=== PATIENT | female | born 1970 | race Caucasian/White ===

== ENCOUNTER 2018-04-01 05:56 | Day surgery (SDC) | payer SELFPAY ==
[2018-03-28 16:04] LABS: Hematocrit 35.3 % (37-47); Hemoglobin 11.4 g/dl (12.0-15.0); Mean Corp Hgb Conc 32.3 g/gl (32-36); Mean Corpuscular Hgb 26.1 pg (27.0-32.0); Mean Platelet Vol. 8.5 fl (6.2-12.0); Platelet Count 371 K/mm3 (150-450); RBC Distribution Width CV 15.5 % (11.6-14.6); RBC Distribution Width SD 44.7 fl (35.1-43.9); Red Blood Count 4.36 M/mm3 (4.2-5.4); White Blood Count 9.7 K/mm3 (4.4-11.0)
[2018-03-28 16:12] LABS: Scan Indicated on CBC? Y/N NO
[2018-03-28 16:30] LABS: Prothrombin Time (Protime)PT. 13.2 SECONDS (11.7-14.9)
[2018-03-28 16:31] LABS: Partial Thromboplast Time 28.3 Seconds (24.1-36.2)
[2018-03-28 16:56] LABS: Creatinine, Serum 0.57 mg/dL (0.55-1.02); EST Glomerular Filtration Rate 122 mL/min (>60); Est Glom Filt Rate - Afr Amer 148 mL/min (>60)
[2018-03-28 17:04] LABS: Pregnancy, Serum, hCG Quali. NEGATIVE Negative (0-9 Nonpreg)
--- NOTE | 2018-03-31 17:45 | HP.PCM_ITS ---
History and Physical Date of Admission: 04/01/18 Surgical History and Physical Date: 03/31/2018 Name: GERALD GOEL Age: 48 Date of : 1970 Gerald Goel, a 48 year old female 10 0 0 0 10, presents for Vaginal Hysterectomy and AP Repair and possible SSF on 04/01/18 at 7 :30. 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 PT states it has been present atleast 4 years. Does admit to some mild pain with sitting. Occasional incontinence. LMP 03-21-2018 . Denies any other problems or concerns at this time; prolapse which began 3-4 years ago. Gerald claims it started gradually It occurs all the time. It is located in the vagina. Severity is severe; Associated signs and symptoms are low back pain. MEDICATIONS HISTORY: ALLERGIES: Penicillins, Hives and/or rash Infections - none Illnesses - none Accidents - None Hospitalizations - see surgery Review of Systems: GENERAL - Denies fever, or chills SKIN - Denies skin changes EYES - Denies visual changes EARS - Denies difficulty hearing NOSE - Denies nasal congestion or bleeding MOUTH - Denies sore throat or difficulty swallowing NECK - Denies pain or swelling RESPIRATORY - Denies shortness of breath or wheezing CARDIOVASCULAR - Denies palpitations or chest pain GASTROINTESTINAL - Denies nausea, vomiting, diarrhea, constipation GENITOURINARY - prolapse MUSCULOSKELETAL - Denies joint or muscle pain NEUROLOGICAL - Denies localized numbness or weakness PSYCHIATRIC - Denies depression or anxiety ENDOCRINE - Denies heat or cold intolerance, weight loss or gain HEMATO-IMMUNOLOGIC - Denies excesive bleeding with cuts SOCIAL HISTORY: Alcohol Use - denies drinking Smoking - denies smoking Illicit Drug Use - denies use of street drugs Spouse-Sig Other Name - Richard FAMILY HISTORY: nv MENSTRUAL HISTORY: nv PAST PREGNANCIES: Total Pregnancies - 10; Full Term Pregnancies - 10; Premature - 0; Abortions, Induced - 0; Abortions, Spontaneous - 0; Ectopics - 0; Multiple Births - 0; Living Children - 10 SURGICAL HISTORY: 1. 09/17/2011 hernia repair PHYSICAL EXAM BP- 124/64 Weight- 61.35527 lbs CONSTITUTIONAL - NAD, well nourished, and well developed SKIN - No rash, lesions, or ulcers HEENT - Normocephalic, PERRLA, EOMI NECK - No nodes, no nuchal rigidity and thyroid normal size and texture LYMPH NODES - Palpation of lymph nodes in neck and groins within normal limits LUNGS - CTA x2 without wheezes, crackles or rales CARDIAC - Regular rate and rhythm without rubs, murmurs, or gallops ABDOMEN - Without hepatosplenomegaly, distention, masses, rebound, or guarding; normal bowel sounds; no hernias EXTREMITIES - No edema or calf tenderness NEUROLOGICAL - Cranial nerves II-XII grossly intact PSYCHIATRIC - A and O to time, place, person, mood and affect External Genitial Vagina - non-tender without lesions Urethra/Urethral Meatus - non-tender Bladder - non-tender Vagina - vaginal meyer are pink and moist without loss of rugae and no evidence of atropy Cervix - without cervical motion tenderness and has normal size and features without evident lesions Uterus - multiparous size 6 cm & wt 75-125 g and total prolapse of uterus and vagina with edema of vagina Adnexa - clear without massess or tenderness ASSESSMENT/PLAN: 1. Uterovaginal Prolapse, Complete Discussed options for treatment and pt and desire we proceed with Vag Hyst, AP Repair, possible SSF. Discussed RBAs and all questions answered. Fitted with 3.75 inch Gelhorn pessary until surgery to help reduce edema.
[2018-04-01] VITALS (14 sets, daily range): BP systolic 96–117; BP diastolic 56–74; PULSE 55–87; RESP 14–16; TEMP 36.1–36.9; O2SAT 93–100; BMI 28.5
--- NOTE | 2018-04-01 | HYST_PTH ---
PATIENT: GERALD MARRUFO LOC: [facility] [place] U#:[id number] AGE/SX: 48/F ROOM: RE04/01/[address]: Dr. Andrews Castillo MD : 1970 BED: DIS: 04/02/2018 SPEC #: [id number] RECD: 04/01/18 12:35 STATUS: REDD DIEGO #: [id number] TAL: 04/01/18 00:[address]: Andrews Castillo DEPT: SURGICAL PATHOLOGY RECD BY: Birtton Slater ENTERED: 04/01/18 12:35 SP TYPE: HYSTERECT OTHR DR: Dr. Antwon Thomas, DO Tissues: Uterus, NOS Procedures: Surgery Specimen Level V HEADER OPERATION: Hysterectomy, vaginal, A & P PRE-OP DIAGNOSIS: Complete uterovaginal prolapse TISSUE SUBMITTED: Uterus, cervix, vaginal mucosa MICROSCOPIC DIAGNOSIS Uterus, cervix and vaginal mucosa, vaginal hysterectomy and A & P repair: Cervix ? chronic cystic cervicitis. Endometrium ? proliferative endometrium. Myometrium ? intramural leiomyoma (3 cm in greatest dimension). - Focal adenomyosis. Vaginal mucosal tissue ? fragments of squamous mucosa with minimal chronic inflammation. SJ:dania 04/02/18 MICROSCOPIC DESCRIPTION Slides are reviewed. GROSS DESCRIPTION Received in fixative is one container labeled with the patient's name and designated uterus, cervix, vaginal mucosa. The specimen consists of a hysterectomy specimen consisting of uterus with cervix and detached pieces of mucosal tissue. The uterus with cervix weighs 344 gm and measures 15 x 7 x 6 cm. The serosal surface is gilmore, glistening. The ectocervix is markedly enlarged and measures 6 x 7 cm. The ectocervical mucosa is unremarkable. The external os is oval in contour. The endocervical canal measures 5 cm in length and the endocervical mucosa is gilmore, glistening and without any mass lesion and measures up to 0.5 cm in thickness. Sections of the uterine wall reveal a gilmore nodular mass measuring 3 cm in greatest dimension. Sections of this mass reveals gilmore whorled cut surfaces without areas of hemorrhage, necrosis or cystic degeneration. The uninvolved uterine wall measures up to 3 cm in thickness. Also received are five variable sized pieces of gilmore mucosal tissue measuring in aggregate 9 x 6 x 1.5 cm. No mucosal lesion is identified. A few instrumentation hogue are noted. Clinical Field Specialist sections are submitted in nine cassettes as follows: 1 - anterior cervix, 2 - posterior cervix, 3 & 4 - anterior uterine wall, 5 & 6 - posterior uterine wall, 7 & 8 ? nodular mass, 9 ? mucosal tissue. / ANUEL:dania 04/01/18 More sections are submitted as follows: 10 anterior cervix, 11 ?posterior cervix. / ANUEL:dania 04/02/18 TC:1 CPT: 52691
[2018-04-01 06:23] LABS: Internal QC Validated? YES +Cl - CLEAR BKGD; Pregnancy, Urine Negative Negative
--- NOTE | 2018-04-01 07:28 | PCM.OP.BLANK ---
Operative Report Date of Procedure: 04/01/18 Surgeon: Andrews Castillo MD, FACOG Manager Medicaid: TASHA Jolly Anesthesia: Robyn Peter CRNA Type of anesthesia: General endotracheal Procedure: Vaginal hysterectomy and AP repair Findings: 10-12 cm uterus with normal-appearing fallopian tubes and ovaries. Total uterovaginal prolapse. Indications: This is a 48-year-old 10 para 10 who is been having problems with total uterovaginal prolapse for about 4 years.. Conservative measures have not been helpful. Given this the patient desires that we proceed the above procedure. She has been counseled regarding the risk and indications of this procedure including the possibility of bleeding, infection, and injury to surrounding structures such as bowel bladder. All questions were answered. Procedure: Patient was taken to the operating room where after induction of general anesthesia she was placed in the dorsal lithotomy position and prepped and draped in the usual sterile fashion. The large Gelhorn pessary was removed. Bladder was drained with a red rubber catheter. Anterior large and edematous cervix was grasped with a tenaculum and anterior cervix circumscribed with cautery on a setting of 35 W coagulation. Anterior vaginal mucosa was undermined and anterior peritoneum was not entered. The posterior aspect of the cervix was circumscribed with a knife and posterior peritoneum easily entered. Progressive bites were taken on either side of the uterine cervix and each pedicle ligated with 0 Vicryl suture. After 4 or 5 suture pedicles were placed we were able to enter anteriorly. Superior pedicles were ligated ?2 with 0 Vicryl suture and sidewall pedicles were examined and oversewn where necessary with [id number] 0 Vicryl suture to achieve hemostasis. Posterior vaginal cuff was oversewn with running locked 0 Vicryl suture. Hemostasis was noted and peritoneum was closed in a pursestring fashion incorporating superior pedicles into the stitch. Hemostasis was noted. Attention was turned toward the anterior repair portion of the procedure. Anterior vaginal mucosa was undermined and divided and then imbricated toward the midline with interrupted 0 Vicryl sutures. Bernabe catheter was placed. Vaginal mucosa was trimmed and then closed with interrupted 2-0 chromic suture. Vaginal cuff was then closed front to back with interrupted [id number] 0 Vicryl suture. Hemostasis was noted. Attention was turned toward the posterior repair portion of the procedure. Remnants of the hymenal ring were grasped with Allises and a V-shaped incision was made in the perineum. Rectovaginal mucosa was then undermined divided and then imbricated toward the midline with interrupted 0 Vicryl suture. Vaginal mucosa was trimmed and then closed with running locked 2-0 chromic suture. Remnants of the bulbocavernosus muscles were identified and brought toward the midline with a single [id number] 0 Vicryl suture and perineum was closed in the usual fashion with running and subcuticular, and [id number] 2-0 chromic suture. Hemostasis was noted. Bernabe catheter was again opened and clear yellow urine was noted. Vagina was packed with iodoform tape. Patient tolerated the procedure well was taken to recovery room in satisfactory condition; sponge instrument and needle counts were all reportedly correct. Estimated blood loss for the case was 350 cc. Cefotan 2 g IV was given prior to beginning the operative procedure. There were no apparent complications of the surgery. Specimen to pathology was uterus and vaginal mucosa.
--- NOTE | 2018-04-01 07:31 | OP.PCM_ITS ---
Operative Report Date of Procedure: 04/01/18 Surgeon: Andrews Castillo MD, FACOG Division Human Resources Manager: TASHA Jolly Anesthesia: Robyn Peter CRNA Type of anesthesia: General endotracheal Procedure: Vaginal hysterectomy and AP repair Findings: 10-12 cm uterus with normal-appearing fallopian tubes and ovaries. Total uterovaginal prolapse. Indications: This is a 48-year-old 10 para 10 who is been having problems with total uterovaginal prolapse for about 4 years.. Conservative measures have not been helpful. Given this the patient desires that we proceed the above procedure. She has been counseled regarding the risk and indications of this procedure including the possibility of bleeding, infection, and injury to surrounding structures such as bowel bladder. All questions were answered. Procedure: Patient was taken to the operating room where after induction of general anesthesia she was placed in the dorsal lithotomy position and prepped and draped in the usual sterile fashion. The large Gelhorn pessary was removed. Bladder was drained with a red rubber catheter. Anterior large and edematous cervix was grasped with a tenaculum and anterior cervix circumscribed with cautery on a setting of 35 W coagulation. Anterior vaginal mucosa was undermined and anterior peritoneum was not entered. The posterior aspect of the cervix was circumscribed with a knife and posterior peritoneum easily entered. Progressive bites were taken on either side of the uterine cervix and each pedicle ligated with 0 Vicryl suture. After 4 or 5 suture pedicles were placed we were able to enter anteriorly. Superior pedicles were ligated ?2 with 0 Vicryl suture and sidewall pedicles were examined and oversewn where necessary with [id number] 0 Vicryl suture to achieve hemostasis. Posterior vaginal cuff was oversewn with running locked 0 Vicryl suture. Hemostasis was noted and peritoneum was closed in a pursestring fashion incorporating superior pedicles into the stitch. Hemostasis was noted. Attention was turned toward the anterior repair portion of the procedure. Anterior vaginal mucosa was undermined and divided and then imbricated toward the midline with interrupted 0 Vicryl sutures. Bernabe catheter was placed. Vaginal mucosa was trimmed and then closed with interrupted 2-0 chromic suture. Vaginal cuff was then closed front to back with interrupted [id number] 0 Vicryl suture. Hemostasis was noted. Attention was turned toward the posterior repair portion of the procedure. Remnants of the hymenal ring were grasped with Allises and a V-shaped incision was made in the perineum. Rectovaginal mucosa was then undermined divided and then imbricated toward the midline with interrupted 0 Vicryl suture. Vaginal mucosa was trimmed and then closed with running locked 2-0 chromic suture. Remnants of the bulbocavernosus muscles were identified and brought toward the midline with a single [id number] 0 Vicryl suture and perineum was closed in the usual fashion with running and subcuticular, and [id number] 2-0 chromic suture. Hemostasis was noted. Bernabe catheter was again opened and clear yellow urine was noted. Vagina was packed with iodoform tape. Patient tolerated the procedure well was taken to recovery room in satisfactory condition; sponge instrument and needle counts were all reportedly correct. Estimated blood loss for the case was 350 cc. Cefotan 2 g IV was given prior to beginning the operative procedure. There were no apparent complications of the surgery. Specimen to pathology was uterus and vaginal mucosa.
--- NOTE | 2018-04-01 07:32 | DCINST_ITS ---
Discharge Diet: No Restrictions Discharge Activity: Return to Normal Activity, May Not Drive - while taking narcotic pain medications., May Shower, May Take a Tub Bath May resume sexual activity in: 6-8 weeks Call your doctor if your incision/area has: Continuous Slow Oozing, Sudden Increased Bleeding, Increased Pain/ Swelling, Increased Redness, Foul Smelling Discharge Call your doctor if you observe: Fever of 101 or Higher, Inability to urinate, Inability to have a bowel movement, Using more than one pad per hour Allergies/Adverse Reactions: Allergies Penicillins [PCN] Allergy (Verified 03/29/18 16:11) Hives Medications to take at Discharge Calcium Carbonate [Calcium] 2 tab PO DAILY 03/29/18 Multivitamins,Therapeutic [Multivitamin] 1 tablet PO DAILY 03/29/18 Docusate Sodium [Colace] 100 mg PO BID PRN PRN #60 cap 04/01/18 Oxycodone [Oxyir] 5 mg PO Q6H PRN PRN 7 Days #10 tab 04/01/18 The following prescriptions were given: Oxycodone [Oxyir] 5 mg PO Q6H PRN PRN 7 Days #10 tab PRN Reason: Mod-Severe Pain (4-10/) Docusate Sodium [Colace] 100 mg PO BID PRN PRN #60 cap PRN Reason: Constipation Primary Care Physician: Antwon Thomas DO [Primary Care Provider] - Test Results: Test results from this visit will be discussed in further detail at your follow- up appointment, if applicable. Please Follow Up With: Andrews Castillo MD When: 2-3 weeks
[2018-04-01] MEDS: Acetaminophen 500 MG Tablet 1000 MG PO ×2 (14:09→23:03)
--- NOTE | 2018-04-01 14:11 | MDS.RN ---
Spouse at bedside.
[2018-04-01] MEDS: 0.9% NaCl Peripheral Flush Adult/Peds IV (15:38)
[2018-04-01] MEDS: Ketorolac 30 MG/ML Syringe IV ×2 (15:38→23:03)
[2018-04-01] MEDS: Enoxaparin 30 MG/0.3 ML Syringe SC (17:55)
[2018-04-01] MEDS: Lactated Ringers 1,000 ML 125 ML IV (17:55)
[2018-04-02 00:12] VITALS: BP 130/74; PULSE 63; RESP 15; TEMP 36.9; O2SAT 99
[2018-04-02 05:00] VITALS: BP 112/72; PULSE 67; RESP 16; TEMP 36.8; O2SAT 97
[2018-04-02] MEDS: Ketorolac 30 MG/ML Syringe IV (05:37)
[2018-04-02] MEDS: Acetaminophen 500 MG Tablet 1000 MG PO (05:37)
[2018-04-02 06:45] LABS: Hematocrit 28.2 % (37-47); Mean Corp Hgb Conc 31.9 g/gl (32-36); Mean Corpuscular Hgb 25.6 pg (27.0-32.0); Mean Corpuscular Volume 80.3 fL (81-99); Mean Platelet Vol. 8.4 fl (6.2-12.0); Platelet Count 258 K/mm3 (150-450); RBC Distribution Width CV 15.9 % (11.6-14.6); RBC Distribution Width SD 46.6 fl (35.1-43.9); Red Blood Count 3.51 M/mm3 (4.2-5.4); White Blood Count 11.5 K/mm3 (4.4-11.0)
[2018-04-02 06:49] LABS: Scan Indicated on CBC? Y/N NO
[2018-04-02 07:03] LABS: Creatinine, Serum 0.58 mg/dL (0.55-1.02); EST Glomerular Filtration Rate 119 mL/min (>60); Est Glom Filt Rate - Afr Amer 144 mL/min (>60); Estimated Creatinine Clearance 95.86 ml/min
--- NOTE | 2018-04-02 07:11 | PCM.PN.OB ---
Subjective: Patient without complaints. Tolerating diet well. Positive flatus. Minimal vaginal bleeding. - Physical Exam Vital Signs Temp Pulse Resp BP Pulse Ox 98.2 F 67 16 112/72 97 04/02/18 05:00 04/02/18 05:00 04/02/18 05:00 04/02/18 05:00 04/02/18 05:00 Oxygen Flow Rate (L/min) 2 Oxygen Delivery Method Room Air Weight: 156 lb 4.924 oz Body Mass Index (BMI) 28.5 Intake and Output for Last 24 Hours 03/31/18 04/01/18 04/02/18 23:59 23:59 23:59 Intake Total 3147 / 3147 1590 / 1590 Output Total 1060 / 1060 3175 / 3175 Balance 2087 / 2087 -1585 / -1585 Laboratory Tests Past 24 Hrs 04/02/18 04/02/18 06:14 06:14 WBC 11.5 H RBC 3.51 L Hgb 9.0 L Hct 28.2 L MCV 80.3 L MCH 25.6 L MCHC 31.9 L RDW 15.9 H RDW Differential 46.6 H Plt Count 258 MPV 8.4 Creatinine 0.58 Estim Creat Clear Calc 95.86 Est GFR (MDRD) Af Amer 144 Est GFR (MDRD) Non-Af 119 Medical Necessity - Tobacco Use Smoking Status: Never smoker Assessment/Plan Doing well postoperative day #1 status post vaginal hysterectomy and anterior posterior repair. Will release to home with routine instructions when able to void on own.
[2018-04-02] MEDS: Multivitamins,Therapeutic Tablet 1 TABLET PO (07:48)
[2018-04-02] MEDS: Calcium (Elemental) 500 MG Tablet 1000 MG PO (07:48)
[2018-04-02 08:53] VITALS: BP 110/68; PULSE 65; RESP 16; TEMP 36.7; O2SAT 99
--- NOTE | 2018-04-02 11:11 | NURSING ---
Pt voided 410 cc clear yellow urine.
== END 2018-04-02 11:35 | disposition home or self-care (01) ==
LOC: SDC 05:59 → AC 06:00 → MS3 04-02 09:37 → MS2 04-02 09:38
PROVIDERS: Anesthesiology; Family Provider Family Medicine; PCP Family Medicine; Visit Provider Obstetrics & Gynecology
PROC: (CPT 58260; principal; 2018-04-01 07:10)
DX: N81.3 Complete uterovaginal prolapse (principal); D25.1 Intramural leiomyoma of uterus; N72 Inflammatory disease of cervix uteri; N80.0 Endometriosis of uterus
CPT/HCPCS: 00944; 57260; 58290; 36415; 81025; 82565; 84703; 85027; 85610; 85730; 86850; 86900; 88307; J7120; A4216; J2405